=== PATIENT | male | born 1995 | race Caucasian/White ===

== ENCOUNTER 2018-08-22 23:14 | Emergency (ER) | payer SELFPAY ==
[~2018-08-22] VITALS: Ht 182.9 cm; Wt 95.3 kg
[~2018-08-22 23:14] MED LIST: ONDA4TAB12 PO
[2018-08-22 23:33] VITALS: BP 158/99
[2018-08-22] MEDS: KETOROLAC 30 MG/ML VIAL. IM ONE (23:45)
[2018-08-22] MEDS ORDERED: AMOX500T PO (23:50)
[2018-08-22] MEDS ORDERED: MELO7.5T29 PO (23:50)
[2018-08-22] MEDS ORDERED: HYDR-3165 PO (23:50)
--- NOTE | 2018-08-22 23:50 | PHYS DOC ---
Past History Past Medical History: No Pertinent History Past Surgical History: No Surgical History Smoking: Cigarettes Alcohol Use: None Drug Use: None Adult General Chief Complaint Chief Complaint: DENTAL PROBLEM HPI HPI Patient is a 22-year-old male presents with right upper back tooth dental pain that started approximately 1600 today. Increased pain with cold. Pain has been getting worse over time. No significant relief with 400 mg of ibuprofen. No drainage. No fever. Pain is moderate to severe.[] Review of Systems Review of Systems Constitutional: Denies fever or chills [] Eyes: Denies change in visual acuity, redness, or eye pain [] HENT: Denies nasal congestion or sore throat [] Respiratory: Denies cough or shortness of breath [] Cardiovascular: No chest pain or palpitations[] GI: Denies abdominal pain, nausea, vomiting, bloody stools or diarrhea [] : Denies dysuria or hematuria [] Musculoskeletal: Denies back pain or joint pain [] Integument: Denies rash or skin lesions [] Neurologic: Denies headache, focal weakness or sensory changes [] Endocrine: Denies polyuria or polydipsia [] All other systems were reviewed and found to be within normal limits, except as documented in this note. Allergies Allergies Allergies Coded Allergies Type Severity Reaction Last Updated Verified No Known Drug Allergies 02/18/18 No Physical Exam Physical Exam Constitutional: Well developed, well nourished, no acute distress, non-toxic appearance. [] HENT: Normocephalic, atraumatic, bilateral external ears normal, oropharynx moist, no oral exudates, nose normal. Tooth #1 has tenderness to percussion, no significant gingival erythema or edema around the base of the tooth. Tooth is broken towards the posterior aspect.[] Eyes: PERRLA, EOMI, conjunctiva normal, no discharge. [] Neck: Normal range of motion, no tenderness, supple, no stridor. No cervical lymphadenopathy [] Cardiovascular:Heart rate regular rhythm, no murmur [] Lungs & Thorax: Bilateral breath sounds clear to auscultation [] Abdomen: Not examined. [] Skin: Warm, dry, no erythema, no rash. [] Back: No tenderness, no CVA tenderness. [] Extremities: No tenderness, no cyanosis, no clubbing, ROM intact, no edema. [] Neurologic: Alert and oriented X 3, normal motor function, normal sensory function, no focal deficits noted. [] Psychologic: Affect normal, judgement normal, mood normal. [] Current Patient Data Vital Signs Vital Signs Date Time Temp Pulse Resp B/P (MAP) Pulse Ox O2 Delivery O2 Flow Rate FiO2 08/22/18 23:33 98.2 67 18 98 Room Air EKG EKG [] Radiology/Procedures Radiology/Procedures [] Course & Med Decision Making Course & Med Decision Making Pertinent Labs and Imaging studies reviewed. (See chart for details) Medical decision making: Patient appears to have dental caries/infection. There is no evidence of ANUG, no Alejandro angina, nontoxic patient. No peritonsillar abscess. No airway obstruction.[] Dragon Disclaimer Dragon Disclaimer This electronic medical record was generated, in whole or in part, using a voice recognition dictation system. Departure Departure: Impression: Primary Impression: Dental infection Disposition: HOME, SELF-CARE Condition: IMPROVED Referrals: CHELSEA MONTENEGRO MD (PCP) Follow-up in 2 days Patient Instructions: Dental Abscess, Dental Caries Additional Instructions: Follow-up with your regular doctor and dentist in 2 days. A list of local dental clinics has been provided. Contact one of them to set up a follow-up appointment. Take the medication as prescribed. Return to the ER if worsening pain or any other concerns. Scripts Amoxicillin (AMOXICILLIN) 500 Mg Tablet 500 MG PO TID for dental infection for 10 Days, #30 TAB Prov: RODY BHAT DO 08/22/18 Hydrocodone Bit/Acetaminophen (NORCO 5-325 TABLET) 1 Each Tablet 1-2 TAB PO Q4-6HRS for severe pain, #20 TAB Prov: RODY BHAT DO 08/22/18 Meloxicam (MELOXICAM) 7.5 Mg Tablet 7.5 MG PO DAILY for PAIN, #20 TAB Prov: RODY BHAT DO 08/22/18 RODY BHAT DO Aug 22, 2018 23:50
[2018-08-23] MEDS ORDERED: AMOXICILLIN 250 MG CAPSULE PO ONE
[2018-08-23] MEDS ORDERED: KETOROLAC 15 MG/ML VIAL. ONE (00:02)
[2018-08-23] MEDS ORDERED: AMOXICILLIN/K CLAV 500/125MG TABLET. ONE (00:02)
== END 2018-08-23 00:21 | disposition home or self-care (01) ==
LOC: MERGE 23:14 → ER 23:14
DX: K04.7 Periapical abscess without sinus (principal); F17.210 Nicotine dependence, cigarettes, uncomplicated
CPT/HCPCS: 96372; 99283; J1885

== ENCOUNTER 2018-09-22 16:50 | Emergency (ER) | payer SELFPAY ==
[~2018-09-22] VITALS: Ht 182.9 cm; Wt 95.3 kg
[~2018-09-22 16:50] MED LIST changes: +AMOX500T PO; +HYDR-3165 PO; +MELO7.5T29 PO
[2018-09-22 17:05] VITALS: BP 139/74
--- NOTE | 2018-09-22 17:13 | PHYS DOC ---
Past History Past Medical History: No Pertinent History Past Surgical History: No Surgical History Smoking: Cigarettes Alcohol Use: None Drug Use: None Adult General Chief Complaint Chief Complaint: HAND PROBLEM HPI HPI Patient is a 23-year-old otherwise healthy male who presents with bilateral hand injuries. He states he got angry at work yesterday and punched a concrete wall with both hands. He states the right hand is worse than the left. He states the right hand is more swollen. He is able to make a fist. He has not taken anything at home to help with the discomfort. Right now he states the pain is moderate.[] Review of Systems Review of Systems Constitutional: Denies fever or chills [] Eyes: Denies change in visual acuity, redness, or eye pain [] HENT: Denies nasal congestion or sore throat [] Respiratory: Denies cough or shortness of breath [] Cardiovascular: No additional information not addressed in HPI [] GI: Denies abdominal pain, nausea, vomiting, bloody stools or diarrhea [] : Denies dysuria or hematuria [] Musculoskeletal: Bilateral hand injury[] Integument: Denies rash or skin lesions [] Neurologic: Denies headache, focal weakness or sensory changes [] Endocrine: Denies polyuria or polydipsia [] All other systems were reviewed and found to be within normal limits, except as documented in this note. Current Medications Current Medications Current Medications Medications (Trade) Dose Ordered Sig/[facility] Start Time Stop Time Status Last Admin Dose Admin Ibuprofen (Motrin) 600 mg 1X ONCE 09/22/18 17:15 09/22/18 17:16 UNV Allergies Allergies Allergies Coded Allergies Type Severity Reaction Last Updated Verified No Known Drug Allergies 09/22/18 No Physical Exam Physical Exam Constitutional: Well developed, well nourished, no acute distress, non-toxic appearance. [] HENT: Normocephalic, atraumatic, bilateral external ears normal, oropharynx moist, no oral exudates, nose normal. [] Eyes: PERRLA, EOMI, conjunctiva normal, no discharge. [] Neck: Normal range of motion, no tenderness, supple, no stridor. [] Cardiovascular:Heart rate regular rhythm, no murmur [] Lungs & Thorax: Bilateral breath sounds clear to auscultation [] Abdomen: Bowel sounds normal, soft, no tenderness, no masses, no pulsatile masses. [] Skin: Warm, dry, no erythema, no rash. [] Back: No tenderness, no CVA tenderness. [] Extremities: Right hand is tender to palp mildly swollen with a abrasion across the knuckles no obvious deformity left hand is minimally swollen and tender to touch full range of motion no obvious deformity. [] Neurologic: Alert and oriented X 3, normal motor function, normal sensory function, no focal deficits noted. [] Psychologic: Affect normal, judgement normal, mood normal. [] EKG EKG [] Radiology/Procedures Radiology/Procedures [] Impressions: Bilateral hand x-ray: Negative exam as interpreted by me Course & Med Decision Making Course & Med Decision Making Pertinent Labs and Imaging studies reviewed. (See chart for details) [] Dragon Disclaimer Dragon Disclaimer This electronic medical record was generated, in whole or in part, using a voice recognition dictation system. Departure Departure: Impression: Primary Impression: Contusion of left hand Additional Impression: Contusion of right hand Disposition: HOME, SELF-CARE Condition: STABLE Referrals: CHELSEA MONTENEGRO MD (PCP) Patient Instructions: Hand Contusion Additional Instructions: Take ibuprofen for discomfort. Return him or sperm with any new or concerning symptoms Problem Qualifiers Primary Impression: Contusion of left hand Encounter type: initial encounter Qualified Codes: S60.222A - Contusion of left hand, initial encounter Additional Impression: Contusion of right hand Encounter type: initial encounter Qualified Codes: S60.221A - Contusion of right hand, initial encounter FABRIZIO RIDER DO Sep 22, 2018 17:13
[2018-09-22] MEDS ORDERED: IBUPROFEN 600 MG TABLET. PO ONE (17:15)
--- NOTE | 2018-09-22 17:32 | RAD ---
Exam: Bilateral hand 3 views INDICATION: Trauma TECHNIQUE: Frontal, lateral and oblique views of the right and left hand Comparisons: None FINDINGS: Right hand: Bone mineralization and development are normal. No acute or healed fractures. Soft tissues are unremarkable. Joint spaces are well-maintained. Left hand: Bone mineralization and development are normal. No acute or healed fractures. Soft tissues are unremarkable. Joint spaces are well-maintained. IMPRESSION: 1. No acute osseous abnormality of the right hand. 2. No acute osseous abnormality of the left hand. Electronically signed by: Kia Santamaria MD (09/22/2018 5:29 PM) [facility]
== END 2018-09-22 17:30 | disposition home or self-care (01) ==
LOC: ER 16:50
DX: S60.222A Contusion of left hand, initial encounter (principal); S60.221A Contusion of right hand, initial encounter; F17.210 Nicotine dependence, cigarettes, uncomplicated; W22.01XA Walked into wall, initial encounter; Y93.89 Activity, other specified; Y92.89 Other specified places as the place of occurrence of the external cause; Y99.8 Other external cause status
CPT/HCPCS: 73130; 99284

== ENCOUNTER 2018-10-02 15:12 | Emergency (ER) | payer SELFPAY ==
[~2018-10-02] VITALS: Ht 182.9 cm; Wt 95.3 kg
[2018-10-02] MEDS ORDERED: ONDANSETRON PF 4 MG/2 ML VIAL. ONE (15:56)
[2018-10-02] MEDS ORDERED: IV NORMAL SALINE 1,000ML 1,000 ML IV ONE (16:00)
[2018-10-02] MEDS ORDERED: ONDANSETRON PF 4 MG/2 ML VIAL. IV ONE (16:00)
[2018-10-02] MEDS ORDERED: MVI, ADULT NO.4 WITH VIT K 10 ML, FOLIC ACID SYRINGE for ER 1 MG, THIAMINE INJ 100 MG i... IV ONE ×4 (16:00)
[2018-10-02] MEDS ORDERED: ONDANSETRON PF 4 MG/2 ML VIAL. IM ONE (16:00)
[2018-10-02 16:09] LABS: BASO # 0.1 x10^3/uL (0.0-0.2); BASO % 1 % (0-3); EOS % 0 % (0-3); HEMATOCRIT 45.4 % (39.0-53.0); HEMOGLOBIN 15.3 g/dL (13.0-17.5); LYMPH # 1.8 x10^3/uL (1.0-4.8); LYMPH % 14 % (24-48); MEAN CORPUSCULAR HEMOGLOBIN 29 pg (25-35); MEAN CORPUSCULAR HGB CONC 34 g/dL (31-37); MEAN CORPUSCULAR VOLUME 87 fL (79-100); MONO # 0.6 x10^3/uL (0.0-1.1); MONO % 5 % (0-9); NEUT # 10.3 x10^3uL (1.8-7.7); NEUT % 80 % (31-73); PLATELET COUNT 389 x10^3/uL (140-400); RED BLOOD COUNT 5.23 x10^6/uL (4.30-5.70); RED CELL DISTRIBUTION WIDTH 14.1 % (11.5-14.5); WHITE BLOOD COUNT 12.8 x10^3/uL (4.0-11.0)
[2018-10-02 16:25] LABS: ALBUMIN 4.6 g/dL (3.4-5.0); ALBUMIN/GLOBULIN RATIO 1.7 (1.0-1.7); CALCIUM 8.9 mg/dL (8.5-10.1); CREATININE 0.8 mg/dL (0.7-1.3); POTASSIUM 4.3 mmol/L (3.5-5.1); TOTAL BILIRUBIN 0.5 mg/dL (0.2-1.0); TOTAL PROTEIN 7.3 g/dL (6.4-8.2)
[2018-10-02] MEDS ORDERED: FAMOTIDINE 20 MG/2 ML VIAL IVP ONE (16:30)
[2018-10-02 17:24] LABS: AMPHETAMINE/METHAMPHETAMINE NEG (NEG); BARBITURATES NEG (NEG); BENZODIAZEPINES NEG (NEG); CANNABINOIDS POS (NEG); COCAINE NEG (NEG); METHADONE NEG (NEG); OPIATES NEG (NEG); PHENCYCLIDINE NEG (NEG)
[2018-10-02 17:26] LABS: COLOR,URINE AMBER
[2018-10-02 17:27] LABS: BACTERIA,URINE 0 /HPF (0-FEW); BILIRUBIN,URINE LARGE (NEG); CLARITY,URINE CLEAR; GLUCOSE,URINE NEG (NEG); HYALINE CASTS, URINE OCC /HPF; NITRITE,URINE NEG (NEG); RBC,URINE 0 /HPF (0-2); UROBILINOGEN,URINE 0.2 mg/dL (0.2 mg/dL); WBC,URINE RARE /HPF (0-4)
[2018-10-02 17:38] VITALS: BP 148/91
[2018-10-02] MEDS ORDERED: FAMO-63 PO (17:38)
[2018-10-02] MEDS ORDERED: ONDA4TAB12 PO (17:39)
--- NOTE | 2018-10-02 17:39 | PHYS DOC ---
Past History Past Medical History: No Pertinent History Past Surgical History: Other Smoking: Cigarettes Alcohol Use: Heavy Additional Alcohol Information: HEAVY OVER PAST 2 DAYS Drug Use: None Adult General Chief Complaint Chief Complaint: NAUSEA/VOMITING/DIARRHEA HPI HPI Patient is a 23 year old male who presents with complaint of nausea and vomiting. The patient states that over the past 48 hours he has drank approximately 60 beers. States that he was with friends and they were drinking recreationally. Notes that he does not drink on a daily basis and denies alcohol is a problem. Denies any other health problems. States that he has been having numerous episodes of nausea and vomiting today and has not been able keep anything down. Denies any pain or fever currently. Has not had any blood in his vomit. Due to persistent symptoms he came to the emergency department for treatment as he is concerned he may have alcohol poisoning. Review of Systems Review of Systems Constitutional: Denies fever or chills [] Eyes: Denies change in visual acuity, redness, or eye pain [] HENT: Denies nasal congestion or sore throat [] Respiratory: Denies cough or shortness of breath [] Cardiovascular: Denies chest pain or edema[] GI: Nausea, vomiting, denies abdominal pain or bloody stools[] : Denies dysuria or hematuria [] Musculoskeletal: Denies back pain or joint pain [] Integument: Denies rash or skin lesions [] Neurologic: Denies headache, focal weakness or sensory changes [] All other systems were reviewed and found to be within normal limits, except as documented in this note. Current Medications Current Medications Current Medications Medications (Trade) Dose Ordered Sig/[facility] Start Time Stop Time Status Last Admin Dose Admin Famotidine (Pepcid Vial) 20 mg 1X ONCE 10/02/18 16:30 10/02/18 16:35 DC 10/02/18 16:47 20 MG Multivitamins/ Minerals 10 ml/ Folic Acid 1 mg/ Thiamine HCl 100 mg/Sodium Chloride 1,011.1 ml @ 1,000 mls/ hr 1X ONCE 10/02/18 16:00 10/02/18 17:00 DC 10/02/18 16:22 1,000 MLS/HR Ondansetron HCl (Zofran) 4 mg 1X ONCE 10/02/18 16:00 10/02/18 16:02 DC 10/02/18 16:01 4 MG Sodium Chloride 1,000 ml @ 1,000 mls/hr 1X ONCE 10/02/18 16:00 10/02/18 16:59 DC 10/02/18 16:00 1,000 MLS/HR Allergies Allergies Allergies Coded Allergies Type Severity Reaction Last Updated Verified No Known Drug Allergies 09/22/18 No Physical Exam Physical Exam Constitutional: Alert, afebrile, appears ill but in no acute distress. [] HENT: Normocephalic, atraumatic, bilateral external ears normal, oropharynx moist, no oral exudates, nose normal. [] Eyes: PERRLA, EOMI, conjunctiva normal, no discharge. [] Neck: Normal range of motion, no tenderness, supple, no stridor. [] Cardiovascular: Tachycardia, regular rhythm, no murmur [] Lungs & Thorax: Bilateral breath sounds clear to auscultation [] Abdomen: Bowel sounds normal, soft, no tenderness, no masses, no pulsatile masses. [] Skin: Warm, dry, no erythema, no rash. [] Back: No tenderness, no CVA tenderness. [] Extremities: No tenderness, no cyanosis, no clubbing, ROM intact, no edema. [] Neurologic: Alert and oriented X 3, normal motor function, normal sensory function, no focal deficits noted. [] Current Patient Data Vital Signs Vital Signs Date Time Temp Pulse Resp B/P (MAP) Pulse Ox O2 Delivery O2 Flow Rate FiO2 10/02/18 16:39 66 20 149/64 (92) 95 Room Air 10/02/18 15:35 98.0 Lab Results Laboratory Tests Test 10/02/18 15:54 10/02/18 17:05 White Blood Count 12.8 x10^3/uL (4.0-11.0) H Red Blood Count 5.23 x10^6/uL (4.30-5.70) Hemoglobin 15.3 g/dL (13.0-17.5) Hematocrit 45.4 % (39.0-53.0) Mean Corpuscular Volume 87 fL (79-100) Mean Corpuscular Hemoglobin 29 pg (25-35) Mean Corpuscular Hemoglobin Concent 34 g/dL (31-37) Red Cell Distribution Width 14.1 % (11.5-14.5) Platelet Count 389 x10^3/uL (140-400) Neutrophils (%) (Auto) 80 % (31-73) H Lymphocytes (%) (Auto) 14 % (24-48) L Monocytes (%) (Auto) 5 % (0-9) Eosinophils (%) (Auto) 0 % (0-3) Basophils (%) (Auto) 1 % (0-3) Neutrophils # (Auto) 10.3 x10^3uL (1.8-7.7) H Lymphocytes # (Auto) 1.8 x10^3/uL (1.0-4.8) Monocytes # (Auto) 0.6 x10^3/uL (0.0-1.1) Eosinophils # (Auto) 0.0 x10^3/uL (0.0-0.7) Basophils # (Auto) 0.1 x10^3/uL (0.0-0.2) Sodium Level 143 mmol/L (136-145) Potassium Level 4.3 mmol/L (3.5-5.1) Chloride Level 103 mmol/L (98-107) Carbon Dioxide Level 25 mmol/L (21-32) Anion Gap 15 (6-14) H Blood Urea Nitrogen 17 mg/dL (8-26) Creatinine 0.8 mg/dL (0.7-1.3) Estimated GFR (Cockcroft-Gault) 122.0 BUN/Creatinine Ratio 21 (6-20) H Glucose Level 115 mg/dL (70-99) H Calcium Level 8.9 mg/dL (8.5-10.1) Total Bilirubin 0.5 mg/dL (0.2-1.0) Aspartate Amino Transferase (AST) 51 U/L (15-37) H Alanine Aminotransferase (ALT) 107 U/L (16-63) H Alkaline Phosphatase 80 U/L (46-116) Total Protein 7.3 g/dL (6.4-8.2) Albumin 4.6 g/dL (3.4-5.0) Albumin/Globulin Ratio 1.7 (1.0-1.7) Lipase 132 U/L (73-393) Ethyl Alcohol Level 51 mg/dL (0-10) H Urine Collection Type Unknown Urine Color Amanda Urine Clarity Clear Urine pH 8.5 Urine Specific Dodson 1.015 Urine Protein 100 mg/dl (NEG-TRACE) Urine Glucose (UA) Neg mg/dL (NEG) Urine Ketones (Stick) Neg mg/dL (NEG) Urine Blood Neg (NEG) Urine Nitrite Neg (NEG) Urine Bilirubin Large (NEG) Urine Urobilinogen Dipstick 0.2 mg/dL (0.2 mg/dL) Urine Leukocyte Esterase Neg (NEG) Urine RBC 0 /HPF (0-2) Urine WBC Rare /HPF (0-4) Urine Squamous Epithelial Cells None /LPF Urine Bacteria 0 /HPF (0-FEW) Urine Hyaline Casts Occ /HPF Urine Mucus Mod /LPF Urine Opiates Screen Neg (NEG) Urine Methadone Screen Neg (NEG) Urine Barbiturates Neg (NEG) Urine Phencyclidine Screen Neg (NEG) Urine Amphetamine/Methamphetamine Neg (NEG) Urine Benzodiazepines Screen Neg (NEG) Urine Cocaine Screen Neg (NEG) Urine Cannabinoids Screen Pos (NEG) Urine Ethyl Alcohol Pos (NEG) EKG EKG Not performed[] Radiology/Procedures Radiology/Procedures Not performed[] Course & Med Decision Making Course & Med Decision Making Pertinent Labs and Imaging studies reviewed. (See chart for details) Patient was given a 1 L bolus of normal saline as well as 1 L of banana bag fluids in addition to IV Zofran and Pepcid. On reevaluation, patient states symptoms have improved and he is feeling better at this time. Counseled patient on responsible use of alcohol. Voiced understanding of this and states that it is not a regular problem for him and does not wish to seek any intervention at this time. Patient prescribed Pepcid and Zofran for outpatient treatment. Advised follow-up with primary doctor in the next 3 days if symptoms are not improving and return to emergency department for any worsening symptoms. Patient was understanding and in agreement with treatment plan.[] Dragon Disclaimer Dragon Disclaimer This electronic medical record was generated, in whole or in part, using a voice recognition dictation system. Departure Departure: Impression: Primary Impression: Alcohol intoxication Disposition: 01 HOME, SELF-CARE Condition: IMPROVED Referrals: PCPANGELICA (PCP) Patient Instructions: Alcohol Intoxication Additional Instructions: Follow-up with your primary doctor in the next 3 days if symptoms are not improving. Return to the emergency department for any worsening symptoms. Scripts Ondansetron (ONDANSETRON ODT) 4 Mg Tab.rapdis 1 TAB PO Q8HRS PRN for NAUSEA/VOMITING, #16 TAB Prov: TRISTEN COLBERT MD 10/02/18 Famotidine (PEPCID) 20 Mg Tablet 1 TAB PO BID, #30 TAB 0 Refills Prov: TRISTEN COLBERT MD 10/02/18 Problem Qualifiers Primary Impression: Alcohol intoxication Complication of substance-induced condition: uncomplicated Qualified Codes: F10.920 - Alcohol use, unspecified with intoxication, uncomplicated TRISTEN COLBERT MD Oct 02, 2018 17:39
== END 2018-10-02 17:42 | disposition home or self-care (01) ==
LOC: ER 15:12
DX: F10.229 Alcohol dependence with intoxication, unspecified (principal); F17.210 Nicotine dependence, cigarettes, uncomplicated; R11.2 Nausea with vomiting, unspecified; Y90.2 Blood alcohol level of 40-59 mg/100 ml
CPT/HCPCS: 36415; 80053; 80307; 81001; 83690; 85025; 96365; 96375; 99284; G0480; J2405; J3490; 99285-25; J7030

== ENCOUNTER 2019-04-26 21:07 | Emergency (ER) | payer SELFPAY ==
[~2019-04-26] VITALS: Ht 182.9 cm; Wt 98.3 kg
[~2019-04-26 21:07] MED LIST changes: +FAMO-63 PO
[2019-04-26] MEDS ORDERED: CHLO15MO2 PO (21:45)
[2019-04-26] MEDS ORDERED: CLIN300C8 PO (21:45)
--- NOTE | 2019-04-26 21:50 | PHYS DOC ---
Past History Past Medical History: No Pertinent History Past Surgical History: Other Smoking: Cigarettes Alcohol Use: Heavy Drug Use: None Adult General Chief Complaint Chief Complaint: DENTAL PROBLEM HPI HPI Patient is a 23-year-old male who presents with gingival bleeding. Patient woke up with bleeding from gums of the upper premolar. Patient denies trauma to region. On exam, the patient has clotted blood on cause overlying inflamed gingival tissue with widespread dental caries. No history of bruising, spontaneous bleeding. No other symptoms or complaints. [] Review of Systems Review of Systems Review of symptoms as per history of present illness. All other review symptoms are negative. All other systems were reviewed and found to be within normal limits, except as documented in this note. Allergies Allergies Allergies Coded Allergies Type Severity Reaction Last Updated Verified No Known Drug Allergies 09/22/18 No Physical Exam Physical Exam Constitutional: Well developed, well nourished, no acute distress, non-toxic appearance. [] HENT: Normocephalic, atraumatic, bilateral external ears normal, oropharynx moist, gingival bleeding, right upper premolar, inflamed gingiva, widespread caries, nose normal. [] Eyes: PERRLA, EOMI, conjunctiva normal, no discharge. [] Neurologic: Alert and oriented X 3, normal motor function, normal sensory function, no focal deficits noted. [] Psychologic: Affect normal, judgement normal, mood normal. [] Current Patient Data Vital Signs Vital Signs Date Time Temp Pulse Resp B/P (MAP) Pulse Ox O2 Delivery O2 Flow Rate FiO2 04/26/19 21:17 98.3 70 18 162/117 (132) 97 Room Air EKG EKG [] Radiology/Procedures Radiology/Procedures [] Course & Med Decision Making Course & Med Decision Making Pertinent Labs and Imaging studies reviewed. (See chart for details) [Bleeding controlled. Patient prescribed antibiotics and oral rinse with instructions to follow-up with local dentist.] Dragon Disclaimer Dragon Disclaimer This electronic medical record was generated, in whole or in part, using a voice recognition dictation system. Departure Departure: Impression: Primary Impression: Periodontal disease Additional Impression: Gingival bleeding Disposition: HOME, SELF-CARE Condition: GOOD Patient Instructions: Gingivitis, [id number] Additional Instructions: Please take newly prescribed medications as directed. Contact local dentist for reevaluation early next week. Scripts Chlorhexidine Gluconate (PERIDEX) 15 Ml Mouthwash 15-30 ML PO TID for 8 Days, #473 ML 0 Refills Prov: JEANETH WOMACK DO 04/26/19 Clindamycin Hcl (CLINDAMYCIN HCL) 300 Mg Capsule 1 CAP PO TID, #21 CAP Prov: JEANETH WOMACK DO 04/26/19 Problem Qualifiers JEANETH WOMACK DO Apr 26, 2019 21:50
[2019-04-26 21:57] VITALS: BP 156/63
== END 2019-04-26 21:52 | disposition home or self-care (01) ==
LOC: ER 21:07
DX: K06.8 Other specified disorders of gingiva and edentulous alveolar ridge (principal); K05.6 Periodontal disease, unspecified; F17.210 Nicotine dependence, cigarettes, uncomplicated; F10.20 Alcohol dependence, uncomplicated; Y90.9 Presence of alcohol in blood, level not specified
CPT/HCPCS: 99283

== ENCOUNTER 2020-12-20 16:37 | Emergency (ER) | payer SELFPAY ==
[~2020-12-20] VITALS: Ht 180.3 cm; Wt 97.7 kg
[~2020-12-20 16:37] MED LIST changes: +CHLO15MO2 PO; +CLIN-95 PO
[2020-12-20] MEDS ORDERED: IV NORMAL SALINE 1,000ML 1,000 ML IV ONE (17:00)
--- NOTE | 2020-12-20 17:09 | PHYS DOC ---
Past History Past Medical History: No Pertinent History (JEANETH FAJARDO DO) Past Surgical History: Other (JEANETH FAJARDO DO) Smoking: Cigarettes Alcohol Use: Heavy Drug Use: None (JEANETH FAJARDO DO) General Adult EDM: Chief Complaint: ABDOMINAL PAIN HPI: HPI: 25-year-old male presents with lower abdominal pain. He has had pain just below his bellybutton intermittently for the last few hours. It started out of nowhere. He states it feels like a twisting pulling sensation. The episodes last from 1 to 5 minutes. They seem to have gotten more frequent. He had one episode of diarrhea today he has had nausea but no vomiting. (JEANETH FAJARDO DO) Review of Systems: Review of Systems: Constitutional: Denies fever or chills Eyes: Denies change in visual acuity HENT: Denies nasal congestion or sore throat Respiratory: Denies cough or shortness of breath Cardiovascular: Denies chest pain or edema GI: Periumbilical abdominal pain, nausea diarrhea : Denies dysuria Musculoskeletal: Denies back pain or joint pain Integument: Denies rash Neurologic: Denies headache, focal weakness or sensory changes Endocrine: Denies polyuria or polydipsia Lymphatic: Denies swollen glands Psychiatric: Denies depression or anxiety (JEANETH FAJARDO DO) Current Medications: Current Meds: Current Medications Medications (Trade) Dose Ordered Sig/Debbie Start Time Stop Time Status Last Admin Dose Admin Sodium Chloride 1,000 ml @ 1,000 mls/hr 1X ONCE 12/20/20 17:00 12/20/20 17:59 UNV (JEANETH FAJARDO DO) Allergies: Allergies: Allergies Coded Allergies Type Severity Reaction Last Updated Verified No Known Drug Allergies 12/20/20 No (JEANETH FAJARDO DO) Physical Exam: PE: Constitutional: Well developed, well nourished, no acute distress, non-toxic appearance. [] HENT: Normocephalic, atraumatic, bilateral external ears normal, oropharynx moist, no oral exudates, nose normal. [] Eyes: PERRLA, EOMI, conjunctiva normal, no discharge. [] Neck: Normal range of motion, no tenderness, supple, no stridor. [] Cardiovascular: Heart rate regular rhythm, no murmur [] Lungs & Thorax: Bilateral breath sounds clear to auscultation [] Abdomen: Bowel sounds normal, soft, no tenderness, no masses, no pulsatile masses. [] Skin: Warm, dry, no erythema, no rash. [] Back: No tenderness, no CVA tenderness. [] Extremities: No tenderness, no cyanosis, no clubbing, ROM intact, no edema. [] Neurologic: Alert and oriented X 3, normal motor function, normal sensory function, no focal deficits noted. [] Psychologic: Affect normal, judgement normal, mood normal. [] (JEANETH FAJARDO DO) EKG: EKG: [] (JEANETH FAJARDO DO) Radiology/Procedures: Radiology/Procedures: [] Impressions: EXAM: Abdomen and pelvis CT with intravenous contrast. HISTORY: Pain. TECHNIQUE: Computed tomographic images of the abdomen and pelvis were obtained following the administration of intravenous contrast. Multiplanar reformatting was performed. *One or more of the following individualized dose reduction techniques were utilized for this examination: 1. Automated exposure control. 2. Adjustment of the mA and/or kV according to patient size. 3. Use of iterative reconstruction technique. COMPARISON: None. FINDINGS: Evaluation of the lower thorax is unremarkable. No focal hepatic lesion is seen. The gallbladder, pancreas, spleen and adrenal glands are unremarkable. There is no appendicitis. There is no bowel obstruction. There is no abnormal bowel wall thickening. The bladder is nearly empty. The aorta is normal in caliber. There is no lymphadenopathy. There is no suspicious osseous lesion. There is grade 1 anterolisthesis with pars interarticularis defects at L5-S1. There are multiple thoracic and lumbar endplate Schmorl's nodes. IMPRESSION: No acute abdominal or pelvic finding. Electronically signed by: Anahi Lopez MD (12/20/2020 6:00 PM) [id number] DICTATED AND SIGNED BY: ANAHI LOPEZ MD DATE: 12/20/201757 CC: JEANETH FAJARDO DO; CHELSEA MONTENEGRO MD ~MTH0 0 (JEANETH FAJARDO DO) Heart Score: C/O Chest Pain: N/A Risk Factors: Risk Factors: DM, Current or recent (<one month) smoker, HTN, HLP, family history of CAD, obesity. Risk Scores: Score 0 - 3: 2.5% MACE over next 6 weeks - Discharge Home Score 4 - 6: 20.3% MACE over next 6 weeks - Admit for Clinical Observation Score 7 - 10: 72.7% MACE over next 6 weeks - Early Invasive Strategies (JEANETH FAJARDO DO) Course & Med Decision Making: Course & Med Decision Making Pertinent Labs and Imaging studies reviewed. (See chart for details) The patient has an elevated white count of 14.1. The patient CT scan is negative for acute findings. This is likely some kind of viral illness. I have advised supportive care such as clear fluids and rest. I will discharge home with a prescription for Zofran. He is stable for discharge at this time. [] (JEANETH FAJARDO DO) Course & Med Decision Making Not my patient (ZAHIDA CUELLAR MD) Dragon Disclaimer: Dragon Disclaimer: This electronic medical record was generated, in whole or in part, using a voice recognition dictation system. (JEANETH FAJARDO DO) Departure Departure: Impression: Primary Impression: Abdominal pain Disposition: HOME / SELF CARE / HOMELESS Condition: STABLE Referrals: CHELSEA MONTENEGRO MD (PCP) Patient Instructions: Abdominal Pain, Ftol-kx-Eoin Scripts Ondansetron (ONDANSETRON ODT) 4 Mg Tab.rapdis 1 TAB PO PRN Q6-8HRS PRN for VOMITING, #16 TAB Prov: JEANETH FAJARDO DO 12/20/20 JEANETH FAJARDO DO Dec 20, 2020 17:08 ZAHIDA CUELLAR MD Dec 20, 2020 19:10
[2020-12-20] MEDS ORDERED: ONDANSETRON PF 4 MG/2 ML VIAL. IVP ONE (17:15)
[2020-12-20] MEDS ORDERED: IOHEXOL 300 MG/ML 75 ML VIAL. IV ONE (17:15)
[2020-12-20 17:53] LABS: BASO # 0.1 x10^3/uL (0.0-0.2); BASO % 1 % (0-3); EOS # 0.3 x10^3/uL (0.0-0.7); EOS % 2 % (0-3); HEMATOCRIT 45.1 % (39.0-53.0); HEMOGLOBIN 15.3 g/dL (13.0-17.5); LYMPH # 2.5 x10^3/uL (1.0-4.8); LYMPH % 18 % (24-48); MEAN CORPUSCULAR HEMOGLOBIN 30 pg (25-35); MEAN CORPUSCULAR HGB CONC 34 g/dL (31-37); MEAN CORPUSCULAR VOLUME 89 fL (79-100); MONO # 0.8 x10^3/uL (0.0-1.1); MONO % 5 % (0-9); NEUT # 10.4 x10^3uL (1.8-7.7); NEUT % 74 % (31-73); PLATELET COUNT 395 x10^3/uL (140-400); RED BLOOD COUNT 5.05 x10^6/uL (4.30-5.70); RED CELL DISTRIBUTION WIDTH 13.5 % (11.5-14.5); WHITE BLOOD COUNT 14.1 x10^3/uL (4.0-11.0)
[2020-12-20 17:58] LABS: CALCIUM 8.9 mg/dL (8.5-10.1); GFR 92.6; POTASSIUM 3.7 mmol/L (3.5-5.1)
--- NOTE | 2020-12-20 18:02 | RAD ---
EXAM: Abdomen and pelvis CT with intravenous contrast. HISTORY: Pain. TECHNIQUE: Computed tomographic images of the abdomen and pelvis were obtained following the administ ration of intravenous contrast. Multiplanar reformatting was performed. *One or more of the following individualized dose reduction techniques were utilized for this examina tion: 1. Automated exposure control. 2. Adjustment of the mA and/or kV according to patient size. 3. Use of iterative reconstruction technique. COMPARISON: None. FINDINGS: Evaluation of the lower thorax is unremarkable. No focal hepatic lesion is seen. The gallbl adder, pancreas, spleen and adrenal glands are unremarkable. There is no appendicitis. There is no gayle wel obstruction. There is no abnormal bowel wall thickening. The bladder is nearly empty. The aorta i s normal in caliber. There is no lymphadenopathy. There is no suspicious osseous lesion. There is gra de 1 anterolisthesis with pars interarticularis defects at L5-S1. There are multiple thoracic and lum bar endplate Schmorl's nodes. IMPRESSION: No acute abdominal or pelvic finding. Electronically signed by: Anahi Orellana MD (12/20/2020 6:00 PM) [id number]
[2020-12-20 18:05] LABS: ALBUMIN/GLOBULIN RATIO 1.3 (1.0-1.7); TOTAL BILIRUBIN 0.2 mg/dL (0.2-1.0)
[2020-12-20 18:10] VITALS: BP 150/75
[2020-12-20] MEDS ORDERED: ONDA4TAB12 PO (18:10)
[2020-12-20 18:23] LABS: BACTERIA,URINE 0 /HPF (0-FEW); BILIRUBIN,URINE NEG (NEG); CLARITY,URINE CLEAR; COLOR,URINE YELLOW; GLUCOSE,URINE NEG (NEG); NITRITE,URINE NEG (NEG); RBC,URINE 0 /HPF (0-2); SQUAMOUS EPITHELIAL CELL,UR FEW /LPF; UROBILINOGEN,URINE 0.2 mg/dL (0.2 mg/dL); WBC,URINE RARE /HPF (0-4)
== END 2020-12-20 18:15 | disposition home or self-care (01) ==
LOC: ER 16:37
DX: R10.30 Lower abdominal pain, unspecified (principal); F17.210 Nicotine dependence, cigarettes, uncomplicated
CPT/HCPCS: 36415; 74177; 80053; 81001; 85025; 96361; 96374; 99285; J2405; J7030